=== PATIENT | female | born 1990 | race Caucasian/White ===

== ENCOUNTER 2021-07-05 07:48 | Outpatient (CLI) | payer OTHER, SELFPAY ==
[2021-07-05 08:08] LABS: Hematocrit 39.3 % (37.0-47.0); Hemoglobin 12.1 g/dL (12.0-15.0)
== END 2021-07-05 07:49 | disposition home or self-care (01) ==
LOC: ANHSURGERY 07:53
PROVIDERS: PCP Emergency Medicine; Visit Provider Obstetrics & Gynecology
DX: N92.6 Irregular menstruation, unspecified (principal); Z87.42 Personal history of other diseases of the female genital tract; Z01.818 Encounter for other preprocedural examination
CPT/HCPCS: 36415; 85014; 85018; 86850; 86900; 86901

== ENCOUNTER 2021-07-07 01:33 | Day surgery (SDC) | payer OTHER, SELFPAY ==
--- NOTE | 2021-07-04 11:19 | PM.IMHP ---
H&P: HPI History of Present Illness Date/Time: 07/04/21 11:19 30 0 admitted for diagnostic laparoscopy hysteroscopy and dilatation and curettage. She complains of irregular bleeding pelvic pain and dyspareunia. She had an ultrasound that showed a couple small fibroids under. The minora irregular she would like to be in later for pain and discomfort she is admitted for diagnostic laparoscopy with hysteroscopy and dilatation and curettage. Risks and benefits reviewed including but not exclusive of , aspiration pneumonia, bleeding, transfusion, infection perforation injury to bowel, bladder, ureters, or other internal organs with need for open laparotomy and repair. She received the ACOG handout entitled laparoscopy, hysteroscopy, dilatation and curettage respectively. She had all questions answered old and asked to proceed Chief Complaint: Pelvic pain and bleeding Review of Systems Review of Systems: All systems reviewed & are unremarkable except as noted in HPI and below Meds Home Medications and Allergies Allergies Allergy/AdvReac Type Severity Reaction Status Date / Time Penicillins Allergy Unknown UNKNOWN-INF Verified 11/15/17 12:16 ANT Exam Const: General: no acute distress Eyes: General: appearance normal, both eyes and all related structures Neck: Neck: supple and no JVD Thyroid: thyroid normal Resp: Effort & Inspection: normal respiratory effort Auscultation: clear to auscultation bilaterally Cardio: Rate: regular rate Rhythm: regular rhythm GI: Inspection: non-distended GI Palp: Yes Soft to palpation, No Tenderness to palpation present (GI) and No Guarding due to palpation present (GI) Auscultation: normal bowel sounds : External Female Exam: normal external appearance Speculum Exam - Vagina: normal appearance of the vagina Speculum Exam - Cervix: normal appearance of the cervix Bimanual exam- vagina & uterus: enlarged and Uterine tenderness Bimanual Exam- Adnexa, other: tender Skin: General skin exam: no rashes or lesions noted Extrem: General: normal to inspection and no edema Psych: Mental Status: mental status grossly normal Affect: normal affect Assessment and Plan Additional Plan Impression: Pelvic pain with suspected fibroids and irregular bleeding Plan: Laparoscopy/hysteroscopy/dilatation and curettage
[2021-07-04 15:26] VITALS: BMI 23.0
--- NOTE | 2021-07-04 15:33 | PC.NURSE ---
Report to the Outpatient Waiting Room, entrance under the green pavilion located off [facility], at time _0730_ on date _07-07-21_. OR Time: _09_. - You and your visitor will be asked a series of questions to screen for COVID 19 for your protection. - Only one visitor is allowed at this time. - The patient visitor is requested to leave or wait in car when not with patient. - A mask is required within the hospital. Patients may have clear liquids (water, carbonated beverages, clear teas, apple juice) until 3 hours prior to surgery with a maximum of 20 ounces. - No food from midnight until time of surgery Take the following medications with a SIP of water the morning of surgery: ___Sertraline and Valcyclovir Medications to discontinue per physician Multivitamin Date to take last dose____Stop today.____ Please no make-up, nail equatorial guinean, hairspray, perfume, deodorant, or body powder the day of surgery. No jewelry (including any body piercings) or valuables the day of surgery, leave them at home. Please take a shower or bath the night before, or the morning of, surgery with an antibacterial soap. Wear comfortable, loose fitting clothing. Children are encouraged to wear pajamas. - Jewelry must be removed prior to entering the operating room. Rings and piercings that are not removed may be cut off. - The hospital will not accept responsibility for valuables. - Please leave all valuables, including medications, at home the day of surgery. If you are going home after surgery, a licensed ems driver must drive you home. - NO public transportation without another adult. - We recommend that an adult stay with you for 24 hours following discharge. - We also recommend that you do not drive, make important decision, drink alcoholic beverages, or take any drugs that were not prescribed by your health care provider for at least 24 hours after your discharge time. Follow any additional instructions given to you from your surgeon. If you or anyone in your household have experienced Covid symptoms in the past week, please notify your surgeon or the nurse liaison at the phone number below for possible testing. Telephone instructions given to __Patient__and asked if any additional questions and then verbalized understanding. Patient advised to call surgeon office or pre surgery nurse liaison [phone] if any additional questions.
[2021-07-07] VITALS (8 sets, daily range): BP systolic 96–140; BP diastolic 56–87; PULSE 67–114; RESP 16–20; TEMP 36.1–36.4; O2SAT 96–100
--- NOTE | 2021-07-07 06:44 | WPDHPUPDATE1 ---
History and Physical Update Update Date/Time: 07/07/21 06:44 History and Physical has been reviewed, including an updated exam of the patient. There are NO changes in the patient's condition. Risks, benefits, and alternatives have been discussed and questions answered. Patient agrees to proceed with procedure.
[2021-07-07] MEDS: ACETAMINOPHEN 500 MG TABLET 1000 MG PO (08:08)
[2021-07-07] MEDS: KETOROLAC 15 MG/ML VIAL (*BKC) IV PUSH (08:10)
[2021-07-07] MEDS: LACTATED RINGERS 1,000 ML 30 ML IV CONT ×2 (08:15→10:04)
--- NOTE | 2021-07-07 08:41 | WPDANESEPPF ---
Anes - Initial Pre Proc Eval Procedure: Operation Date: 07/07/21 09:30 Proposed Procedures p Diagnostic Laparoscopy, Hysteroscopy, Dilatation and Curettage - Qasim Glasgow MD Date/Time: 07/07/21 08:41 Surgeon: Qasim Glasgow MD Pre Op Diagnosis: pelvic pain, irreg bleeding Patient Data Age: 30 Gender: F Height: 1.6 m Weight: 59 kg Allergies Allergy/AdvReac Type Severity Reaction Status Date / Time Penicillins Allergy Unknown UNKNOWN-INF Verified 07/04/21 15:24 ANT Home Medications Medication Instructions Recorded Confirmed Type multivitamin 1 tablet PO DAILY 07/04/21 07/04/21 History sertraline 50 mg PO QAM 07/04/21 07/04/21 History valacyclovir 500 mg PO QAM 07/04/21 07/04/21 History hydrocodone-acetaminophen 1 tablet PO Q4H PRN #30 tablet 07/07/21 Rx Patient hx anesthesia problems: none Family hx anesthesia problems: none Results Review: All pre-operative results and documents have been reviewed as part of the pre-operative evaluation. [facility] Past Medical History Medical History Anxiety Social History Social History Smoking status: Never smoker Alcohol intake: current Substance use type: marijuana Other substance usage details: Medical daily Living arrangements: with family Spiritual care concerns: No Anes - Eval Final PreProcedure Day of Procedure 07/07/21 08:41 Patient weight: normal Heart: regular rate and rhythm Lungs: clear to auscultation Airway: Mallampati scale class II Neurological: alert and oriented Last oral intake: >/= 8 hours ASA classification: II Emergent: no Anesthetic plan: proceed Anesthesia type and monitoring: general ETT and standard monitoring Results Review: All pre-operative results and documents have been reviewed as part of the pre-operative evaluation. Informed Consent: The patient's anesthetic plan and its attendant risks and benefits were discussed with the patient/family/POA. Questions were solicited and answers provided to the satisfaction of the patient/family/POA.
--- NOTE | 2021-07-07 09:55 | W.PM.PROC2 ---
Procedure Note - Detailed Date of Procedure 07/07/21 Pre-op Diagnosis pelvic pain, irreg bleeding Post-op Diagnosis Same Procedure Performed Laparoscopic destruction of right ovarian cyst lysis of adhesions/hysteroscopy/dilatation curettage Surgeon Qasim Glasgow MD Anesthesia General Indications A 30-year-old female with severe pelvic pain and bleeding with that Findings Benign right ovarian cyst. Normal-appearing ovaries and tubes otherwise. Adhesions on the left. On hysteroscopy uterus sounded to 7cm irregular and tender medium tissue was present Description of Procedure Patient was prepped draped in the fashion placed in the dorsal lithotomy position. Under excellent general trach anesthesia was placed is for. Into this was grasped with the tenaculum and Nuñez's cannula inserted attached to the single-tooth to be used later manipulation. After emptying the bladder of 400cc clear urine the weighted speculum was removed gloves were changed. A infraumbilical incision made the Veress needle passed in the abdomen. Abdomen filled with CO2 gas 15 was mercury. Five trocar advanced under direct visualization assuring injury. Patient placed in Trendelenburg a suprapubic incision made. The 5mm trocar advanced under direct visualization assuring no above findings were seen there was a fair amount of adhesions from colon to the lateral sidewall this was sharply dissected to cleared the left ovary and tube appeared within normal limits right ovary had large ovarian cyst this was opened in linear fashion irrigation was then taken photo documentation of the appendix and gallbladder were undertaken and no other abnormalities were seen. Lower sites removed the gas removed from the abdomen the upper site removed incisions closed with 4 Monocryl glue. Attention was turned to the hysteroscopic portion. The uterus sounded 7cm. Serial dilatation with fragmented out performed followed passes 5mm visualizing hysteroscope using saline as visualizing medium. Thick irregular endometrial tissue was seen but evidence of polyps or. Uterus scraped over the entire 360? until good grating sound was heard. When no further tissue removed then she was moved all accounted for. She tolerated procedure well. All sponge, needle, instrument counts were correct. There were no immediate complications Estimated Blood Loss 5 Drains No Packing No Pathology Yes Complications No immediate complications Condition Stable Disposition PACU
[2021-07-07] MEDS: oxyCODONE HCL (*CRX) 5 MG TAB IR PO (11:18)
== END 2021-07-07 12:00 | disposition home or self-care (01) ==
PROVIDERS: PCP Emergency Medicine; Visit Provider Obstetrics & Gynecology
PROC: 0UDB8ZZ Extraction of Endometrium, Via Natural or Artificial Opening Endoscopic (ICD-10-PCS; CPT 58558; principal; 2021-07-07 09:30)
DX: R10.2 Pelvic and perineal pain (principal); N93.9 Abnormal uterine and vaginal bleeding, unspecified; N83.201 Unspecified ovarian cyst, right side; N73.6 Female pelvic peritoneal adhesions (postinfective); N85.8 Other specified noninflammatory disorders of uterus; N94.10 Unspecified dyspareunia; F41.9 Anxiety disorder, unspecified; F12.90 Cannabis use, unspecified, uncomplicated
CPT/HCPCS: 58558; 58662; 36415; 85014; 85018; 86850; 86900; 86901; 88305; A9270; J1100; J1885; J2250; J2405; J2704; J3010; J7030; J7120

== ENCOUNTER 2023-01-24 09:39 | Outpatient (CLI) | payer OTHER, SELFPAY ==
--- NOTE | ~2023-01-24 | MR_ITS ---
MR breast BI wo/w con 01/25/2023 16:15 INFORMATION SYSTEMS COORDINATOR INDICATION: Irregular discharge. TECHNIQUE: MRI of the breasts perform using standard protocol pre-and post IV contrast with the follo wing sequences: Axial T2 STIR, axial T1, axial vibrant T1 with fat suppression precontrast and multip hasic postcontrast. COMPARISON: No prior studies for comparison. FINDINGS: The breasts are extremely dense. There are no abnormalities on the precontrast sequences. T here is minimal background parenchymal enhancement. In the lower inner quadrant of the right breast, middle third there is a 3 mm enhancing foci with rapid persistent enhancement, 5.8 cm from the nipple , likely benign. No signal abnormalities in the axillary or internal mammary node distributions.. LEFT BREAST: No signal abnormalities on precontrast sequences. There is minimal background parenchym al enhancement. In the upper inner quadrant of the left breast there is a 2 mm enhancing foci, likely benign. No other enhancing masses are identified in the left breast. No signal abnormalities in the axillary or internal mammary lymph nodes. IMPRESSION: 1: Probable benign bilateral enhancing nodular foci, most likely intramammary lymph nodes or fibroad enomas. Recommend follow-up diagnostic bilateral mammogram with possible additional ultrasound. BI-RADS CATEGORY 0 - INCOMPLETE STUDY, NEED ADDITIONAL IMAGING EVALUATION. Reviewed, dictated and finalized at location B. RMATION SYSTEMS COORDINATOR IMPRESSION: 1: Probable benign bilateral enhancing nodular foci, most likely intramammary lymph nodes or fibroadenomas. Recommend follow-up diagnostic bilateral mammogra m with possible additional ultrasound. BI-RADS CATEGORY 0 - INCOMPLETE STUDY, NEED ADDITIONAL IMAGING EVALUATION.
== END 2023-01-24 09:40 | disposition home or self-care (01) ==
PROVIDERS: PCP Emergency Medicine; Visit Provider Physician Assistant Surgical
DX: N64.52 Nipple discharge (principal); R92.2 Inconclusive mammogram
CPT/HCPCS: 77049; A9577; C8908

== ENCOUNTER 2023-05-14 10:00 | Outpatient (CLI) | payer OTHER, SELFPAY ==
--- NOTE | ~2023-05-14 | MM_ITS ---
EXAMINATION: MM_MAGSEEDRT_MG INDICATION: Right breast cancer TECHNIQUE: The procedure for a mammographic-guided Magseed localization was discussed with the patien t. Risks discussed included bleeding and infection. The patient verbalized understanding and agreed t o proceed. The time out was performed to verify the patient's name, date of , and site of procedure. The s kin overlying the breast was prepared in usual fashion. Utilizing mammography guidance, the needle was advanced into the right breast. Confirmation of Magseed position was achieved with ultrasound and subsequent mediolateral and craniocaudal mammogram. The patient tolerated procedure without immediat e complication. FINDINGS: Mammographic images demonstrate deployment of the Magseed device of the biopsy-proven right breast cancer. IMPRESSION: 1. Successful ultrasound-guided right breast Magseed localization. Reviewed, dictated and finalized at location A.
--- NOTE | ~2023-05-14 | MMUS_ITS ---
EXAMINATION: US_MAGSEEDRT_US, MM post biopsy invasive RT INDICATION: Right breast cancer TECHNIQUE: The procedure for a ultrasound -guided Magseed localization was discussed with the patient . Risks discussed included bleeding and infection. The patient verbalized understanding and agreed to proceed. The time out was performed to verify the patient's name, date of , and site of procedure. The s kin overlying the right breast was prepared in usual fashion. Utilizing ultrasound guidance, the need le was advanced into the right breast. Confirmation of Magseed position was achieved with ultrasound. Subsequent mammogram demonstrates the The pat is located 2.2 cm superior medial to the biopsy tissue marker. A follow-up magseed placement will be performed under mammographic guidance. Patient tolerat ed procedure well without complication.. FINDINGS: Ultrasound and mammographic images demonstrate deployment of the Magseed device of the biop sy-proven right breast cancer. IMPRESSION: 1. Placement of ultrasound-guided right breast Magseed localization. Magseed measures 2.2 cm from the tissue marker. Follow-up with magseed placement will be performed using mammographic guidance. Reviewed, dictated and finalized at location A. IMPRESSION: 1. Placement of ultrasound-guided right breast Magseed localization. Magseed me asures 2.2 cm from the tissue marker. Follow-up with magseed placement will be performed using mammographic guidance.
== END 2023-05-14 10:01 | disposition home or self-care (01) ==
PROVIDERS: PCP Emergency Medicine; Visit Provider Surgery
DX: N64.89 Other specified disorders of breast (principal); R92.8 Other abnormal and inconclusive findings on diagnostic imaging of breast
CPT/HCPCS: 19281; 19285; A4648

== ENCOUNTER 2023-06-26 01:05 | Day surgery (SDC) | payer OTHER, SELFPAY ==
--- NOTE | 2023-06-17 13:02 | PC.NURSE ---
Report to the Outpatient Waiting Room, entrance under the green pavilion located off [facility], at time _0600_ on date __06/26/23_. Planned Procedure Time: _0730__. Time changes happen often and if your time is changed the preop area will call you the afternoon before. - You and your visitor will be asked to self-screen and do not enter if you have any COVID symptoms. - A mask is optional within the hospital at this time. Patients may have clear liquids (water, carbonated beverages, clear teas, apple juice) until 3 hours prior to surgery with a maximum of 20 ounces. - No food from midnight until time of surgery - Infants may have breast milk until 4 hours before surgery, infant formula 6 hours prior to surgery. - Children will be allowed to drink immediately following surgery. If applicable, please bring a bottle or sippy cup to assist with drinking. Juice, water, soda, and popsicles are readily available. For infants on formula, please bring formula the day of surgery. Pacifiers are allowed. Take the following medications with a SIP of water the morning of surgery: _Methylpheniadate____ DO NOT STOP ANY OF YOUR OTHER PRESCRIPTION MEDICATIONS PRIOR TO SURGERY ?EXCEPT THE FOLLOWING Medications to discontinue per physician __Vitamins or supplements 3 days prior_ Date to take last dose Please no make-up, nail spanish, hairspray, perfume, deodorant, or body powder the day of surgery. No jewelry (including any body piercings) or valuables the day of surgery, leave them at home. Please take a shower or bath the night before, or the morning of, surgery with an antibacterial soap. Wear comfortable, loose fitting clothing. Children are encouraged to wear pajamas. - Jewelry must be removed prior to entering the operating room. Rings and piercings that are not removed may be cut off. - The hospital will not accept responsibility for valuables. - Please leave all valuables, including medications, at home the day of surgery. If you are going home after surgery, a licensed solid waste truck driver must drive you home. - NO public transportation without another adult if you receive anesthesia. - We recommend that an adult stay with you for 24 hours following discharge. - We also recommend that you do not drive, make important decision, drink alcoholic beverages, or take any drugs that were not prescribed by your health care provider for at least 24 hours after your discharge time. For Pediatric surgeries, we recommend two adults accompany the child home. Follow any additional instructions given to you from your surgeon. If you or anyone in your household have experienced Covid symptoms in the past week, please notify your surgeon or the nurse liaison at the phone number below for possible testing. Telephone instructions given to _patient___and asked if any additional questions and then verbalized understanding. Patient advised to call surgeon office or pre surgery nurse liaison [phone] if any additional questions.
[2023-06-17 13:07] VITALS: BMI 22.1
--- NOTE | ~2023-06-26 | MM_ITS ---
[id number] 06/26/2023 08:13 Indication: Right breast cancer. Procedure: Single right mammography specimen Comparison: Mammogram dated 05/14/2023 Findings: 2 magseed devices and a tissue marker from prior biopsy are recognized within the specimen. In addition there are multiple punctate indeterminate calcifications within the specimen. Impression: 1: Tissue specimen contains to magseed devices as well as tissue core biopsy device. Please refer to procedural report for details. Reviewed, dictated and finalized at location B. Impression: 1: Tissue specimen contains to magseed devices as well as tissue core biopsy de vice. Please refer to procedural report for details.
[2023-06-26] MEDS: LACTATED RINGERS 1,000 ML 30 ML IV CONT ×2 (06:53→08:47)
[2023-06-26] MEDS: ACETAMINOPHEN 500 MG TABLET 1000 MG PO (06:54)
[2023-06-26 06:56] VITALS: BP 109/63; PULSE 77; RESP 18; TEMP 36.7; O2SAT 100
--- NOTE | 2023-06-26 07:02 | P.HPUP_ITS ---
History and Physical Update Update Date/Time: 06/26/23 07:02 Plan for Excisional biopsy of right breast lesion with magseed localization, possible adjacent tissue transfer (CPT 81251, 65407, 61213) History and Physical has been reviewed, including an updated exam of the patie nt. There are NO changes in the patient's condition. Risks, benefits, and alternatives have been discussed and questions answered. Patient agrees to proceed with procedure.
--- NOTE | 2023-06-26 07:09 | P.PNAN_ITS ---
Anes - Initial Pre Proc Eval Procedure: Operation Date: 06/26/23 07:30 Proposed Procedures p Excisional Biopsy Right Breast Lesion with MagSeed Localization, Possible Adjacent Tissue Transfer - Sara Jennings MD Date/Time: 06/26/23 07:09 Surgeon: Sara Jennings MD Pre Op Diagnosis: Right Breast Lesion Patient Data Age: 32 Gender: F Height: 1.6 m Weight: 55.7 kg Last Vital Signs Temp 98.1 F 06/26/23 06:56 Pulse 77 06/26/23 06:56 Resp 18 06/26/23 06:56 BP 109/63 06/26/23 06:56 Pulse Ox 100 06/26/23 06:56 O2 Del Method Room Air 06/26/23 06:56 Allergies Allergy/AdvReac Type Severity Reaction Status Date / Time Penicillins Allergy Unknown UNKNOWN-INF Verified 06/26/23 06:37 ANT Home Medications Medication Instructions Recorded Confirmed Type valacyclovir 500 mg tablet 500 mg PO HS 07/04/21 06/26/23 History methylphenidate HCl 20 mg tablet 20 mg PO DAILY 12/25/22 06/26/23 History biotin 10,000 mcg chewable tablet 10,000 mcg PO DAILY 06/17/23 06/26/23 History (Hair, Skin and Nails (biotin)) lactobacillus combination no.8 3 1 cell PO DAILY 06/17/23 06/26/23 History billion cell capsule hhcitwysiddw-Ad-ninc-minerals 27 1 tablet PO DAILY 06/17/23 06/26/23 History mg-0.4 mg tablet Patient hx anesthesia problems: none Family hx anesthesia problems: none Results Review: All pre-operative results and documents have been reviewed as part of the pre- operative evaluation. [facility] Past Medical History Medical History Anxiety Social History Social History (Updated 12/25/22 @ 11:23 by Hortensia Hankins CMA) Smoking status: Current some day smoker Tobacco type: e-cigarettes/vaping Additional smoking assessment comments: pt stated a occsional vape pen- marijana Alcohol intake: former Alcohol use details: Pt stated a few times a month Substance use: current Substance use type: marijuana Other substance usage details: Pt stated she smokes daily Lack of Transportation: No Lack of Food: Never True Current Housing: I Have Housing Concerned About Future Housing: No Difficulty Paying Gas/Electric Bills: No Difficulty Paying for Meds: No Currently Unemployed: No Education: Master's Degree or Higher Difficulty w/ Childcare or Family Care: No Living arrangements: with family Spiritual care concerns: No Anes - Eval Final PreProcedure Day of Procedure 06/26/23 07:09 Patient weight: normal Heart: regular rate and rhythm Lungs: clear to auscultation Airway: Mallampati scale class II Neurological: alert and oriented Last oral intake: >/= 8 hours ASA classification: II Emergent: no Anesthetic plan: proceed Anesthesia type and monitoring: general LMA and standard monitoring Results Review: All pre-operative results and documents have been reviewed as part of the pre- operative evaluation. Informed Consent: The patient's anesthetic plan and its attendant risks and benefits were discussed with the patient/family/POA. Questions were solicited and answers provided to the satisfaction of the patient/family/POA.
[2023-06-26] MEDS: ceFAZolin 2 GM/D5W 50 ML 2 GM/50 ML BAG IVPB (07:28)
[2023-06-26] MEDS: BUPIVACAINE/EPINEPHRINE 0.5% 10 ML VIAL 20 ML INFILTRATE (07:39)
--- NOTE | 2023-06-26 08:17 | SUR.OPER ---
VERIFIED WITH MAMMOGRAPHY THAT THEY RECEIVED 2 PICTURES RIGHT BREAST/08:18 RADIOLOGIST VERIFIED PICTURES TO BE GOOD. PICTURES VIEWED ON FAXITRON PER SURGEON.
--- NOTE | 2023-06-26 08:25 | SUR.OPER ---
RIGHT BREAST DEFECT 4.5X3.5X2.5 CM PER SURGEON
--- NOTE | 2023-06-26 08:40 | P.OP_ITS ---
Procedure Note - Detailed Date of Procedure 06/26/23 Pre-op Diagnosis Right Breast high risk lesion Post-op Diagnosis Same Procedure Performed 1. Excisional biopsy of right breast high risk lesion with 2 magseeds for localization 2 Local tissue transfer 4.5cm x 3.5cm Surgeon Sara Jennings MD Government Auditor Valeri Bentley PA-C Anesthesia General Description of Procedure Patient was identified in the preoperative holding area breast to the operating room suite. She underwent localization of the lesion using Mag seed. Review of the post maxi placement mammogram showed the original/initial maxi was placed approximately 2 cm away and this was more anterior and medial to 2nd Mag seed which was the correct placed 1 that was more posterior lateral. Patient was taken to the operating room suite and she was laid supine in the OR table. General anesthesia was induced without difficulty. The 2 Mag seeds were marked on the skin 1 was lateral posterior and the 2nd an incorrect 1 was anterior superior on the skin and decision was made to start with a lateral periareolar incision. Dissection was carried down through the subcutaneous tissue into the breast tissue. The center sentimag probe was used to identify both seeds in the rim of breast tissue was excised along with post seeds together en bloc. The tissue specimen was oriented with surgical paints according to the filling station equipment mechanic instructions, and placed in the Faxitron. Two x- ray images were obtained of the specimen that verified both Mag seed present within the specimen as well as the previous biopsy clip and the suspicious microcalcifications. The specimen was then sent to pathology as a fresh specimen. The cavity was irrigated with saline hemostasis was assured. The sentimag probe was again used to scan the area and no further Mag seed were identified. Dual planing dissection was carried down inferiorly and superiorly, and the inferior intramammary flap was then brought up and superior one brought down and advanced over together to close the cavity, secured in place using several intraparenchymal 2-0 vicryl sutures. This provided great closure for the previous cavity to decrease the risk of seroma. The deep dermal layer was then closed with interrupted 3-0 Vicryl followed by 4-0 Monocryl in a s ubcuticular fashion for the skin. Dermabond was applied followed by a sterile dressing and a surgical bra. Patient was awoken from anesthesia and taken to the recovery in stable condition. All needles, instruments, and sponge counts were correct as reported by operating room staff. Patient tolerated the procedure well with no immediate complications. Valeri Bentley PA-C was present and assisted with patient positioning and retraction throughout the case. Estimated Blood Loss 5 Pathology Yes Complications No immediate complications Condition Stable Disposition PACU [facility] Billing Surgery - Charge Forward: Surgery Billing (CPT 06104, 40501)
[2023-06-26 08:47] VITALS: BP 119/75; PULSE 75; RESP 11; TEMP 36.2; O2SAT 100
[2023-06-26 08:55] VITALS: BP 135/95; PULSE 85; RESP 18; O2SAT 100
[2023-06-26 09:10] VITALS: BP 139/92; PULSE 73; RESP 17; O2SAT 100
[2023-06-26 09:15] VITALS: BP 124/84; PULSE 79; RESP 14
[2023-06-26 09:40] VITALS: BP 128/85; PULSE 75; RESP 16
== END 2023-06-26 09:48 | disposition home or self-care (01) ==
PROVIDERS: PCP Emergency Medicine; Visit Provider Surgery
PROC: (CPT 19125; principal; 2023-06-26 07:30)
DX: N60.11 Diffuse cystic mastopathy of right breast (principal); F12.90 Cannabis use, unspecified, uncomplicated
CPT/HCPCS: 19125; 14001; 76098; 88307; A9270; J0690; J1100; J1596; J2250; J2371; J2405; J2704; J3010; J7120; Q9968